=== PATIENT | female | born 1980 | race Caucasian/White ===

== ENCOUNTER 2020-02-04 19:19 | Emergency (ER) | payer BC, OTHER ==
[~2020-02-04] VITALS: Ht 160 cm; Wt 123.7 kg
[2020-02-04] MEDS ORDERED: IBUPROFEN 800 MG TABLET ONE (20:05)
[2020-02-04] MEDS ORDERED: LIDOCAINE-MPF 1%, 2ML ONE (20:06)
[2020-02-04] MEDS ORDERED: LIDOCAINE 1%, 10ML INFIL ONE (20:30)
[2020-02-04] MEDS ORDERED: IBUPROFEN 800 MG TABLET PO ONE (20:30)
[2020-02-04] MEDS ORDERED: LIDOCAINE-MPF 1%, 5ML ONE (20:50)
[2020-02-04 21:54] VITALS: BP 118/76
== END 2020-02-04 21:57 | disposition home or self-care (01) ==
LOC: ED 20:05
DX: S61.412A Laceration without foreign body of left hand, initial encounter (principal); W26.0XXA Contact with knife, initial encounter; Y93.89 Activity, other specified; Y92.009 Unspecified place in unspecified non-institutional (private) residence as the place of occurrence of the external cause; Y99.8 Other external cause status
CPT/HCPCS: 12041; 99284